=== PATIENT | female | born 1965 | race Caucasian/White ===

== ENCOUNTER 2016-07-27 09:24 | Emergency (ER) | payer BC ==
[~2016-07-27] VITALS: Ht 177.8 cm; Wt 108.2 kg
[~2016-07-27 09:24] MED LIST: ASPIR 8181 M1 PO; ASPIRIN325 MG PO; ATORVASTATIN CA10 MG PO; ATORVASTATIN CA80 MG PO; BYETTA PEN250 MCG/M1 SC; CLINDAMYCIN HC300 MG PO; EFFIENT10 MG PO; ENDOCET 7.5-321 EACH PO; FLUOXETINE HCL20 MG PO; INVOKANA100 MG PO; LEVAQUIN500 MG PO; LIPITOR40 MG PO; LISINOPRIL2.5 MG PO; LISINOPRIL20 MG PO; LOPRESSOR25 MG PO; METFORMIN HCL1000 MG PO; MOTRIN800 MG PO; NITROSTAT0.4 MG SL; NORCO 5/3251 TABLET PO; NORCO 7.5/321 TABLET PO; PREDNISONE10 MG PO; PREVACID30 MG PO
[2016-07-27] MEDS ORDERED: FLEXERIL10 MG PO (10:24)
[2016-07-27 11:02] VITALS: BP 102/53
== END 2016-07-27 11:09 | disposition home or self-care (01) ==
LOC: EME 09:24
DX: M54.5 Low back pain (principal); I10 Essential (primary) hypertension; E11.9 Type 2 diabetes mellitus without complications; Z79.84 Long term (current) use of oral hypoglycemic drugs; Z95.5 Presence of coronary angioplasty implant and graft; Z79.82 Long term (current) use of aspirin; F17.200 Nicotine dependence, unspecified, uncomplicated
CPT/HCPCS: 99281; 99283; J1885